=== PATIENT | male | born 2000 | race Two or more races ===

== ENCOUNTER 2023-09-22 18:58 | Emergency (ER) | payer MEDICAID, OTHER ==
[~2023-09-22] VITALS: Ht 170.2 cm; Wt 64.5 kg
[2023-09-22 19:18] VITALS: BP 130/92; PULSE 65; RESP 16; TEMP 98.6; O2SAT 98
[2023-09-22] MEDS ORDERED: IBUP-1455 PO (21:06)
[2023-09-22] MEDS ORDERED: HYDR-4902 PO ×2 (21:06)
== END 2023-09-22 21:16 | disposition home or self-care (01) ==
LOC: ER 18:58
DX: S62.336A Displaced fracture of neck of fifth metacarpal bone, right hand, initial encounter for closed fracture (principal); X58.XXXA Exposure to other specified factors, initial encounter; Y93.89 Activity, other specified; Y92.89 Other specified places as the place of occurrence of the external cause; Y99.8 Other external cause status
CPT/HCPCS: 29125; 73130

== ENCOUNTER 2024-04-04 00:42 | Emergency (ER) | payer MEDICAID ==
[~2024-04-04] VITALS: Ht 172.7 cm; Wt 65.4 kg
[~2024-04-04 00:42] MED LIST: HYDR-4902 PO; IBUP-1455 PO
[2024-04-04 01:25] VITALS: TEMP 97.8
[2024-04-04] MEDS: KETOROLAC TROMETH 30 MG/ML 1ML VIAL IM ONE (01:27)
[2024-04-04] MEDS: KETAMINE 50mg/ML 10ml Vial (500mg/10ml) IV ONE (01:42)
[2024-04-04 01:57] VITALS: BP 145/100; PULSE 85; RESP 19; O2SAT 100
[2024-04-04] MEDS ORDERED: IBUP1TAB5 PO (02:31)
== END 2024-04-04 02:46 | disposition home or self-care (01) ==
LOC: ER 00:42
DX: S43.004A Unspecified dislocation of right shoulder joint, initial encounter (principal); W21.05XA Struck by basketball, initial encounter; Y93.89 Activity, other specified; Y92.89 Other specified places as the place of occurrence of the external cause; Y99.8 Other external cause status
CPT/HCPCS: 23650; 73020; 73030; 96372; 99152; 99285; J1885

== ENCOUNTER 2025-01-22 13:35 | Emergency (ER) | payer MEDICAID ==
[~2025-01-22] VITALS: Ht 170.2 cm; Wt 68.2 kg
[~2025-01-22 13:35] MED LIST changes: +IBUP1TAB5 PO
[2025-01-22 14:32] LABS: Urine Protein, UAD 1+ (Negative)
[2025-01-22 14:36] LABS: Hematocrit 41.4 % (41.0-53.0); Hemoglobin 13.8 g/dL (13.5-17.5); Mean Corpuscular Hemoglobin 29.1 pg (28.0-32.0); Mean Corpuscular Volume 87.6 fL (80.0-100.0); Nucleated Red Blood Cells % 0.2 %
--- NOTE | 2025-01-22 14:39 | ED.PDOC ---
General HPI Comments This is a 24 year old male presents to the ED with chief complaint of testicular pain. Patient reports that he has been experiencing worsening right sided testicular pain and swelling for the past 3 days. Patient relays that he has difficulty walking due to his pain. Patient states the only strenuous activity he performed prior to symptom onset was lifting a car battery incorrectly. Patient denies any dysuria, hematuria, abdominal pain, or N/V/D. Chief Complaint: Testicle Pain Time Seen by MD: 14:19 Primary Care Provider: unknown Reviewed notes: Nurses Notes, Medications, Allergies Allergies: Coded Allergies: NO KNOWN ALLERGIES (Unverified , 09/22/23) Home Meds Active Scripts Ibuprofen Micronized (Ibuprofen) 600 Mg Tab, 600 MG PO Q8HPRN PRN, #20 TAB Prov:LOGAN IVAN [facility] 04/04/24 Hydrocodone-Acetaminophen (Hydrocodone Bitartrate/AC 5-325 mg) 1 Tab Tab, 1 TAB PO Q4HPRN PRN, #10 TAB Prov:LOGAN IVAN 09/22/23 Ibuprofen Micronized (Ibuprofen) 800 Mg Tab, 800 MG PO Q8HPRN PRN, #20 TAB Prov:LOGAN IVAN [facility] 09/22/23 Information Source: Patient Mode of Arrival: Ambulatory Severity: Moderate Timing: Days Duration: Since onset Prehospital treatment: None Onset: Spontaneous Symptoms: None History of: None Location: None Location male: R Scrotum Penile discharge: None Modifying factors: None associated signs and symptoms: None Past Medical History PAST MEDICAL HISTORY: Denies Surgical History: Denies all surgeries Family History Family History: Reviewed,noncontributory to illness Social History Smoker: Non-Smoker Alcohol: Denies ETOH Use Drugs: Denies Drug Use Lives In: Home Constitutional: denies: chills, diaphoresis, fatigue, fever, malaise, sweats, weakness, others EENTM: denies: blurred vision, double vision, ear bleeding, ear discharge, ear drainage, ear pain, ear ringing, eye pain, eye redness, hearing loss, mouth pain, mouth swelling, nasal discharge, nose bleeding, nose congestion, nose pain, photophobia, tearing, throat pain, throat swelling, voice changes, others Respiratory: denies: cough, hemoptysis, orthopnea, SOB at rest, shortness of breath, SOB with excertion, stridor, wheezing, others Cardiovascular: denies: chest pain, dizzy spells, diaphoresis, Dyspnea on exertion, edema, irregular heart beat, left arm pain, lightheadedness, palpitations, PND, syncope, others Gastrointestinal: denies: abdomen distended, abdominal pain, blood streaked bowels, constipated, diarrhea, dysphagia, difficulty swallowing, hematemesis, melena, nausea, poor appetite, poor fluid intake, rectal bleeding, rectal pain, vomiting, others Genitourinary: reports: testicle pain, testicle swelling; denies: burning, dysuria, flank pain, frequency, hematuria, incontinence, penile discharge, penile sore, pain, urgency, others Neurological: denies: dizziness, fainting, headache, left sided numbness, left sided weakness, numbness, paresthesia, pre-existing deficit, right sided numbness, right sided weakness, seizure, speech problems, tingling, tremors, weakness, others Musculoskeletal: denies: back pain, gout, joint pain, joint swelling, muscle pain, muscle stiffness, neck pain, others Integumetry: denies: bruises, change in color, change in hair/nails, dryness, laceration, lesions, lumps, rash, wounds, others Allergic/Immunocompromised: denies: Difficulty Healing, Frequent Infections, Hives, Itching, others Hematologic/Lymphatic: denies: anemia, blood clots, easy bleeding, easy bruising, swollen glands, others Endocrine: denies: excessive hunger, excessive sweating, excessive thirst, excessive urination, flushing, intolerance to cold, intolerance to heat, unexplained weight gain, unexplained weight loss, others Psychiatric: denies: anxiety, bipolar disorder, depression, hopeless, panic disorder, schizophrenia, sleepless, suicidal, others All Other Systems: Reviewed and Negative Physical Exam General Appearance: No Apparent Distress, Normal HEENT: Normal ENT Inspection, Pharynx Normal, TMs Normal Neck: Full Range of Motion, Non-Tender, Normal, Normal Inspection Respiratory: Chest Non-Tender, Lungs Clear, No Accessory Muscle Use, No Respiratory Distress, Normal Breath Sounds Cardiovascular: No Edema, No JVD, No Murmur, No Gallop, Normal Peripheral Pulses, Regular Rate/Rhythm Breast Exam: Deferred Gastrointestinal: No Organomegaly, Non Tender, No Pulsatile Mass, Normal Bowel Sounds, Soft Genitalia: Other (Testicular tenderness) Pelvic: Deferred Rectal: Deferred Extremities: No calf tenderness, Normal capillary refill, Normal inspection, Normal range of motion, Non-tender, No pedal edema Musculoskeletal : Apperance: Normal Neurologic: Alert, nuclear medicine medical director II-XII nml as Tested, No Motor Deficits, Normal Affect, Normal Mood, No Sensory Deficits Cerebellar Function: Normal Reflexes: Normal Skin: Dry, Normal Color, Warm Lymphatic: No Adenopathy Was a procedure done? Was a procedure done?: No Differential Diagnosis Kidney stone (Female): N/A Kidney stone (Male): N/A Penile/Scrotal: Epidiymitis, Prostatitis, STD, UTI, Testicular Torsion Urinary Problem (Male): N/A Urinary Problem (Female): N/A X-Ray, Labs, Meds, VS Vital Signs Date Time Temp Pulse Resp B/P (MAP) Pulse Ox O2 Delivery O2 Flow Rate FiO2 01/22/25 13:55 97.7 79 16 134/95 (108) 97 97.7 Lab Test 01/22/25 14:23 01/22/25 14:10 Range/Units White Blood Count 5.0 4.4-10.8 10^3/uL Red Blood Count 4.72 4.5-5.90 10^6/uL Hemoglobin 13.8 13.5-17.5 g/dL Hematocrit 41.4 41.0-53.0 % Mean Corpuscular Volume 87.6 80.0-100.0 fL Mean Corpuscular Hemoglobin 29.1 28.0-32.0 pg Mean Corpuscular Hemoglobin Concent 33.3 32.0-36.0 g/dL Red Cell Distribution Width 14.9 H 11.8-14.3 % Platelet Count 137 L 140-450 10^3/uL Mean Platelet Volume 9.8 6.9-10.8 fL Neutrophils (%) (Auto) 63.5 37.0-80.0 % Lymphocytes (%) (Auto) 28.8 10.0-50.0 % Monocytes (%) (Auto) 7.2 0.0-12.0 % Eosinophils (%) (Auto) 0.0 0.0-7.0 % Basophils (%) (Auto) 0.5 0.0-2.0 % Neutrophils # (Auto) 3.2 1.6-8.6 10 ^3/uL Lymphocytes # (Auto) 1.4 0.4-5.4 10 ^3/uL Monocytes # (Auto) 0.4 0-1.3 10 ^3/uL Eosinophils # (Auto) 0 0-0.8 10 ^3/uL Basophils # (Auto) 0 0-0.2 10 ^3/uL Nucleated Red Blood Cells 0.2 % Sodium Level 140 136-145 mmol/L Potassium Level 3.9 3.5-5.1 mmol/L Chloride Level 107 98-107 mmol/L Carbon Dioxide Level 27 20-31 mmol/L Anion Gap 6 5-15 Blood Urea Nitrogen 10 9-23 mg/dL Creatinine 0.80 0.700-1.30 mg/dL Glomerular Filtration Rate Calc 128 >90 mL/min BUN/Creatinine Ratio 12.5 10.0-20.0 Serum Glucose 81 74-106 mg/dL Calcium Level 10.2 8.7-10.4 mg/dL Urine Color Yellow Yellow Urine Clarity Clear Clear Urine pH 6.0 5.0-9.0 Urine Specific Industry 1.034 1.001-1.035 Urine Protein 1+ H Negative Urine Ketones Negative Negative Urine Blood Negative Negative /uL Urine Nitrite Negative Negative Urine Bilirubin Negative Negative Urine Urobilinogen Normal Negative mg/dL Urine Leukocyte Esterase 2+ Negative /uL Urine RBC 7 0 - 3 /hpf Urine Microscopic WBC 36 H 0-3 /HPF Urine Squamous Epithelial Cells Few <5 /hpf Urine Bacteria None seen None Seen /hpf Urine Mucus Few None Seen Urine Glucose Normal Normal mg/dL Chlamydia trachomatis (RACHELLE) Pending Neisseria gonorrhoeae (RACHELLE) Pending Time of 1ST Reevaluation: 15:19 Reevaluation 1ST: Unchanged Patient Education/Counseling: Diagnosis, Treatment Family Education/Counseling: No Family Present SEPSIS Sepsis Screen Date sepsis recognized/suspect: Jan 22, 2025 Time Sepsis recognized/suspect: 1355 Recent Procedure: No On Antibiotic Therapy: No Respiratory Rate >20: No Heart Rate >90: No Temp<36 C (96.8 F) or >38.3 C: No SBP <90 or MAP <65 mmHG: No New Acute Mental Status Change: No Is the patient on CPAP, BIPAP,: No Physician Orders Testicular Ultrasound (01/22/25 14:16) Chlamydia/Gc Amplification (01/22/25 14:16) Acetaminophen Tablet (Tylenol Tablet) (01/22/25 16:45) Ketorolac Injection (Toradol Injection) (01/22/25 16:45) Ceftriaxone Sodium (Rocephin) (01/22/25 16:45) Doxycycline Tablet (Vibramycin Tablet) (01/22/25 16:45) Vital Signs Date Time Temp Pulse Resp B/P (MAP) Pulse Ox O2 Delivery O2 Flow Rate FiO2 01/22/25 13:55 97.7 79 16 134/95 (108) 97 97.7 Laboratory Tests Test 01/22/25 14:23 White Blood Count 5.0 10^3/uL (4.4-10.8) Departure 1 Departure Time of Disposition: 16:52 (Patient likely with a epididymitis. We will empirically cover patient antibiotics and discharge patient home with outpatient follow up) Impression: Primary Impression: Acute epididymitis Disposition: HOME / SELF CARE / HOMELESS Condition: Stable Additional Instructions: You have epididymitis. This is an infection of your testicle. You were prescribed antibiotics please take as directed. You were referred to a urologist. Please call for an appointment. For pain you can take the followinam: Ibuprofen 400mg with food Noon: Acetaminophen 1000mg 4pm: Ibuprofen 400mg with food 8pm: Acetaminophen 1000mg You should follow up with your regular doctor within one week to ensure you are doing better. If your symptoms worsen or you have any other concerns then please return to the ER. e-Prescriptions Doxycycline Hyclate (DOXYCYCLINE HYCLATE) 100 Mg Tab 1 TAB PO BID for 7 Days, #14 TAB Prov: HALLIE CANALES MD 01/22/25 Discharged With: Self Critical Care Note Critical Care Time?: No Stability Stability form required: No Heart Score Heart Score: Heart Score Response (Comments) Value History N/A 0 EKG N/A 0 Age N/A 0 Risk Factors N/A 0 Troponin N/A 0 Total 0 I personally scribed for HALLIE CANALES MD ([email or web address]) on 01/22/25 at 14:39. Electronically submitted by Danial Dickey ([email or web address]). HALLIE CANALES MD Jan 22, 2025 14:39
[2025-01-22 14:40] LABS: Chloride 107 mmol/L (98-107); Potassium 3.9 mmol/L (3.5-5.1); Sodium 140 mmol/L (136-145)
[2025-01-22 14:41] LABS: Anion Gap 6 (5-15); Carbon Dioxide 27 mmol/L (20-31)
[2025-01-22 14:42] LABS: Calcium 10.2 mg/dL (8.7-10.4)
[2025-01-22 14:46] LABS: BUN/Creatinine Ratio 12.5 (10.0-20.0); Blood Urea Nitrogen 10 mg/dL (9-23); Glucose 81 mg/dL (74-106)
--- NOTE | 2025-01-22 16:08 | DVH ---
Indication: right testicle pain Technique: Real-time ultrasound images through the scrotum. Comparison: None Findings: Right testicle measures 4.3.5 x 2.5 x 2.7. It has normal echogenicity and echotexture, with no focal solid or cystic mass. There is normal flow on color Doppler, with normal waveforms. The right epidid ymal head measures 4.8 cm, enlarged and hypervascular/heterogeneous. Left testicle measures 3.6 x 2.7 x 2.3 cm. It has normal echogenicity and echotexture, with no focal solid or cystic mass. There is normal flow on color Doppler, with normal waveforms. The left epididy mal head measures 1.7 cm, and has no focal masses. Moderate size right hydrocele. Small right hydrocele. Impression: Enlarged right epididymis that is heterogeneous in appearance and hypervascular suggestive of epididy mitis. Moderate right and small left hydroceles.
[2025-01-22] MEDS: KETOROLAC TROMETH 30 MG/ML 1ML VIAL IV ONE (16:21)
[2025-01-22] MEDS ORDERED: DOXY-286 PO (16:59)
[2025-01-22 17:11] VITALS: BP 132/84; PULSE 86; RESP 17; TEMP 97.8; O2SAT 97
[2025-01-22] MEDS: DOXYCYCLINE 100 MG TAB/CAP PO ONE (17:21)
[2025-01-22] MEDS: cefTRIAXone SOD 1,000 MG VL IM ONE (17:21)
[2025-01-22] MEDS: ACETAMINOPHEN 325 MG TAB PO ONE (17:21)
[2025-01-24 03:07] LABS: Neisseria gonorrhoeae, NAA Negative (Negative)
[2025-01-24 06:07] LABS: Chlamydia Trachomatis, NAA Positive (Negative)
== END 2025-01-22 17:30 | disposition home or self-care (01) ==
LOC: ER 13:35
DX: N45.1 Epididymitis (principal)
CPT/HCPCS: 36415; 76870; 80048; 81001; 85025; 87491; 87591; 96372; 96374; 99285; J0696; J1885